=== PATIENT | female | born 1985 | race Caucasian/White ===

== ENCOUNTER 2024-10-17 12:37 | Emergency (ER) | payer MEDICAID, OTHER ==
[~2024-10-17] VITALS: Ht 165.1 cm; Wt 101.6 kg
[2024-10-17 13:18] LABS: APPEARANCE,URINE CLEAR (CLEAR); GLUCOSE, URINE (UA) NEGATIVE (NEGATIVE); LEUKOCYTE ESTERASE ,URINE 25 Leu/uL (NEGATIVE); NITRATE,URINE NEGATIVE (NEGATIVE); OCCULT BLOOD,URINE MODERATE (NEGATIVE)
[2024-10-17 13:20] LABS: ADD UA MICROSCOPIC YES
[2024-10-17 13:31] LABS: SQUAMOUS EPITHELIAL CELL,UR FEW /HPF (0-2)
[2024-10-17 16:06] LABS: NUCLEATED RED BLOOD CELLS 0.0 % (0.0-0.19); PLATELET COUNT (AUTO) 287.0 K/uL (130-400); RED BLOOD CELL COUNT(AUTO) 5.31 MIL/uL (4.00-5.50); RED CELL DISTRIBUTION WIDTH 12.7 % (11.0-15.5); WHITE BLOOD COUNT (AUTO) 11.7 K/uL (4.8-10.8)
[2024-10-17 16:10] LABS: CREATININE 0.6 mg/dL (0.5-1.0); GLOMERULAR FILTR. RATE CALC 116.0 mL/min (>90); GLUCOSE,RANDOM 102.0 mg/dL (70-105); SODIUM SERUM 138.0 mmol/L (136-145); UREA NITROGEN, BLOOD 21.0 mg/dL (7-18)
[2024-10-17 16:20] LABS: ASPARTATE AMINOTRANSFERASE 18.0 U/L (10-37); TOTAL PROTEIN, SERUM 8.8 g/dL (6.0-8.3)
--- NOTE | 2024-10-17 17:32 | HMCIMG ---
EXAM: CT Abdomen and Pelvis without IV contrast CLINICAL HISTORY: RT SIDE BACK PAIN TECHNIQUE: Axial computed tomography images of the abdomen and pelvis without intravenous contrast. CT scan performed according to ALARA. Automated exposure control used during exam. CONTRAST: Without intravenous contrast. COMPARISON: None provided. FINDINGS: Lung bases are clear. Cholelithiasis without CT evidence for cholecystitis. Limited evaluation of the abdominal organs without intravenous contrast. There is no focal hepatic abnormality or intrahepatic biliary ductal dilatation. The left kidney is not visualized, may be surgically absent. Compensatory hypertrophy of the right kidney. The right kidney is otherwise within normal limits. Adrenal glands, spleen, and pancreas are within normal limits. Bowel loops are normal in caliber without evidence of obstruction, ileus, or obvious bowel wall thickening. There is a tubular fluid-filled structure within the right lower quadrant extending to the central pelvis with overall dimensions of approximately 4.8 x 4.0 x 11.5 cm in craniocaudal, AP, and transverse dimensions respectively. The surrounding fat planes are maintained. Differential considerations include right hydrosalpinx or tubo-ovarian abscess. Recommend pelvic ultrasound and/or contrast-enhanced MR imaging for further evaluation. Bicornuate uterus. Cystic structures within the cervix may reflect Nabothian cysts. No CT evidence for acute appendicitis. No ascites or lymphadenopathy. Atherosclerotic vascular calcifications are noted. There is no acute or suspicious osseous abnormality. Impression: There is a tubular fluid-filled structure within the right lower quadrant extending to the central pelvis with overall dimensions of approximately 4.8 x 4.0 x 11.5 cm in craniocaudal, AP, and transverse dimensions respectively. The surrounding fat planes are maintained. Differential considerations include right hydrosalpinx or tubo-ovarian abscess. Recommend pelvic ultrasound and/or contrast-enhanced MR imaging for further evaluation. /[place]
--- NOTE | 2024-10-17 18:45 | ERN ---
General Chief Complaint: Back Pain-No Injury Stated Complaint: BACK PAIN Time Seen by MD: 14:49 History of Present Illness Initial Comments 39 y/o female came in for lower back pain which has been going on for the past few days. Pt otherwise has no concerns. Patient seen here recently and x-rays of her back were negative. Allergies: Coded Allergies: Penicillins (Unverified Allergy, Severe, 10/17/24) Past Medical History Past Medical History: Gallstones, UTI Medical History Other: SOLITARY KIDNEY SINCE Past Surgical History: Other Surgical History Other: LEFT FALLOPIAN TUBE REMOVAL. D&C ROS Dictation back pain Physical Exam General Appearance: (+) no apparent distress Neck: (+) normal inspection, (+) supple Respiratory: (+) chest non-tender, (+) lungs clear Heart: (+) regular, (+) no gallop Vascular: (+) no edema, (+) normal peripheral pulse Gastrointestinal: (+) soft, (+) non-tender, (+) no organomegaly, (+) bowel sound present Results Laboratory and Microbiology Lab and Micro Result Laboratory Tests Test 10/17/24 12:51 10/17/24 15:55 Urine Color LIGHT-YELLOW (YELLOW) Urine Appearance CLEAR (CLEAR) Urine pH 5.5 (5.0-8.0) Urine Specific [place] 1.019 (1.001-1.031) Urine Protein NEGATIVE mg/dL (NEGATIVE) Urine Glucose (UA) NEGATIVE mg/dL (NEGATIVE) Urine Ketones NEGATIVE mg/dL (NEGATIVE) Urine Occult Blood MODERATE (NEGATIVE) H Urine Nitrate NEGATIVE (NEGATIVE) Urine Bilirubin NEGATIVE mg/dL (NEGATIVE) Urine Urobilinogen 0.2 mg/dL (0.2-1.0) Urine Leukocyte Esterase 25 R[place]u/uL (NEGATIVE) H Urine RBC 2-5 /HPF (0-1) H Urine WBC 6-10 /HPF (0-1) H Urine Squamous Epithelial Cells FEW /HPF (0-2) Urine Bacteria RARE /HPF (None Seen) White Blood Count 11.7 K/uL (4.8-10.8) H Red Blood Count 5.31 MIL/uL (4.00-5.50) Hemoglobin 15.4 g/dL (12.0-16.0) Hematocrit 45.3 % (36-48) Mean Corpuscular Volume 85.3 fL (79-99) Mean Corpuscular Hemoglobin 29.0 pg (27.0-33.0) Mean Corpuscular Hemoglobin Concent 34.0 g/dL (32.0-36.0) Red Cell Distribution Width 12.7 % (11.0-15.5) Platelet Count 287 K/uL (130-400) Mean Platelet Volume 9.3 fL (7.5-10.5) Nucleated Red Blood Cells 0.0 % (0.0-0.19) Sodium Level 138 mmol/L (136-145) Potassium Level 4.0 mmol/L (3.5-5.1) Chloride Level 103 mmol/L (101-111) Carbon Dioxide Level 24 mmol/L (21-32) Blood Urea Nitrogen 21 mg/dL (7-18) H Creatinine 0.6 mg/dL (0.5-1.0) Glomerular Filtration Rate Calc 116 mL/min (>90) Random Glucose 102 mg/dL (70-105) Total Calcium 9.8 mg/dL (8.5-10.1) Total Bilirubin 0.3 mg/dL (0.2-1.0) Direct Bilirubin 0.1 mg/dL (0.0-0.3) Aspartate Amino Transf (AST/SGOT) 18 U/L (10-37) Alanine Aminotransferase (ALT/SGPT) 30 U/L (12-78) Alkaline Phosphatase 80 U/L (50-136) Total Protein 8.8 g/dL (6.0-8.3) H Albumin 3.8 g/dL (3.5-5.0) Serum Test, Qualitative NEGATIVE (NEGATIVE) MDM CT abdomen/pelvic shows tubo-ovarian abscess, pt likely will be transferred for [employer] evaluation. Pt will be signed out to Dr. Esquivel and care will be transition to him. Patient was transferred to [facility]. Gynecological physician there accepted the patient. ED Course Orders Procedure Category Date Status Time Urinalysis Profile LAB 10/17/24 Complete 13:08 Culture Urine CELESTINE 10/17/24 In Process 13:31 Cbc Without LAB 10/17/24 Complete Differential 15:42 Basic Metabolic Panel LAB 10/17/24 Complete 15:42 Ct Abdomen/Pelvis W/O CT 10/17/24 Resulted Contrast 15:42 Testing, LAB 10/17/24 Complete Serum Hcg 15:42 Hepatic Function Panel LAB 10/17/24 Complete 15:42 Ketorolac PHA 10/17/24 Complete Tromethamine 15mg/Ml 17:00 Ketorolac PHA 10/17/24 Complete Tromethamine 15mg/Ml 17:00 Us Pelvic Non-Ob US 10/17/24 Resulted Limited 17:40 Metronidazole PHA 10/17/24 Complete 500mg/100ml Bag 19:00 Ketorolac PHA 10/17/24 Complete Tromethamine 30mg/Ml 22:30 Current Medications Medications (Trade) Dose Ordered Sig/Jacob Route PRN Reason Start Time Stop Time Status Last Admin Dose Admin Ketorolac Tromethamine (toRADol) 15 mg ONCE ONCE IM 10/17/24 17:00 10/17/24 17:01 DC 10/17/24 16:52 Ketorolac Tromethamine (toRADol) 15 mg ONCE ONCE IV 10/17/24 17:00 10/17/24 16:40 DC Ketorolac Tromethamine (toRADol) 30 mg ONCE ONCE IVP 10/17/24 22:30 10/17/24 22:31 DC 10/17/24 22:29 Metronidazole/ Sodium Chloride (flaGYL) 500 mg ONCE ONCE IV 10/17/24 19:00 10/17/24 19:02 DC 10/17/24 19:15 Vital Signs Date Time Temp Pulse Resp B/P (MAP) Pulse Ox O2 Delivery O2 Flow Rate FiO2 10/17/24 22:30 98.2 81 18 151/77 100 Room Air* 0 10/17/24 20:30 98.1 78 16 133/78 100 Room Air* 0 10/17/24 18:11 97.9 64 14 124/76 100 Room Air* 0 10/17/24 17:14 97.9 68 14 128/74 100 Room Air* 0 10/17/24 13:06 97.9 71 14 132/81 99 Room Air* 0 10/17/24 12:41 97.9 71 14 152/81 100 0 DX & DISP Disposition: Transfer Departure Condition: Stable Referrals: FUNMI QUIROZ (PCP) ALONZO SAUER MD Oct 17, 2024 18:45 OPAL ESQUIVEL MD Oct 17, 2024 19:27
--- NOTE | 2024-10-17 19:55 | NUR ---
SPOKE HEIDI BOWLES AT [facility], TRANSFER REQUEST INITIATED. Addendum: 10/18/24 at 0650 by SHANNAN PINA RN RN SPOKE KEYA BOWLES AT [facility], TRANSFER REQUEST INITIATED.
--- NOTE | 2024-10-17 20:01 | HMCIMG ---
EXAMINATION: US Pelvis, Complete. CLINICAL HISTORY: Patient presents for evaluation to rule out tubo-ovarian abscess. COMPARISON: Compared to prior CT abdomen and pelvis dated October 17, 2024. TECHNIQUE: Transvaginal and transabdominal pelvic ultrasound (complete) with image documentation. FINDINGS: ENDOMETRIUM: The uterus demonstrates a bicornuate morphology. Endometrial thickness in the right horn measures 5 mm. Endometrial thickness in the left horn measures 14 mm. UTERUS/CERVIX: Bicornuate uterus with the right uterine horn measuring 7.9 x 4.5 x 4.6 cm and the left uterine horn measuring 8.1 x 4 x 4.4 cm. A 2.0 x 1.3 x 1.9 cm cervical nabothian cyst is present. RIGHT OVARY: Measures 2.5 x 1.2 x 2.0 cm with normal Doppler flow. A serpiginous, fluid-filled tubular structure measuring 9.8 x 4.8 x 6.3 cm in the right adnexa is concerning for hydrosalpinx. LEFT OVARY: Measures 3.2 x 2.8 x 3.8 cm with normal Doppler flow. A 2.2 x 2.1 x 2.9 cm cyst is identified in the left ovary. FREE FLUID: No free fluid. IMPRESSION: Bicornuate uterus with asymmetric endometrial thickness in the uterine horns. Serpiginous fluid-filled tubular structure in the right adnexa measuring 9.8 x 4.8 x 6.3 cm concerning for hydrosalpinx. Left ovarian cyst measuring 2.2 x 2.1 x 2.9 cm. Cervical nabothian cyst measuring 2.0 x 1.3 x 1.9 cm. No sonographic evidence of tubo-ovarian abscess. /[place]
--- NOTE | 2024-10-17 20:25 | NUR ---
RECEIVED CALL FROM JELENA AT [facility]. PT WAS ACCEPTED AT [address] LAURA DICKERSON.
--- NOTE | 2024-10-17 22:42 | NUR ---
REPORT CALLED TO [facility] AT [phone] AND GIVEN TO SUNIL PEREZ. PT GOING TO ROOM [id number] IN MATERNAL FLOOR
--- NOTE | 2024-10-17 22:48 | NUR ---
[facility] CALL[facility] AT THIS TIME
[2024-10-18 01:28] VITALS: BP 140/74; PULSE 77; RESP 19; TEMP 98.3; O2SAT 100
--- NOTE | 2024-10-18 01:29 | NUR ---
[facility] AT BEDSIDE FOR TRANSPORT TO [facility], NO SIGNS OF ACUTE DISTRESS NOTED, PT A&OX4, GCS 15, RESP EVEN AND UNLABORED ON RA, VSS, ALL PT BELONGINGS SENT WITH [facility] AND FAMILY AT TIME OF DEPARTURE
== END 2024-10-18 01:33 | disposition short-term general hospital (02) ==
LOC: EDH 12:37
DX: M54.50 Low back pain, unspecified (principal); Z88.0 Allergy status to penicillin
CPT/HCPCS: 99285; 74176; 96374; 76857; 96375; 80076; 80048; 84703; 85027; 87086; 81001; 36415; 96372; J1885 ×2; J3490